=== PATIENT | female | born 1985 | race Two or more races ===

== ENCOUNTER → 2017-09-29 13:37 | Outpatient (CLI) | payer BC, SELFPAY ==
[2017-09-29 16:13] LABS: Glucose Challenge Gest 1H 50g 147 mg/dL (70-140)
[2017-09-29 16:17] LABS: Hematocrit 35.8 % (37-47); Hemoglobin 11.7 g/dl (12.0-15.0); Mean Corp Hgb Conc 32.7 g/gl (32-36); Mean Corpuscular Hgb 29.8 pg (27.0-32.0); Mean Corpuscular Volume 91.3 fL (81-99); Mean Platelet Vol. 10.2 fl (6.2-12.0); Platelet Count 234 K/mm3 (150-450); RBC Distribution Width CV 13.7 % (11.6-14.6); RBC Distribution Width SD 44.7 fl (35.1-43.9); Red Blood Count 3.92 M/mm3 (4.2-5.4); White Blood Count 9.4 K/mm3 (4.4-11.0)
[2017-09-29 16:23] LABS: Scan Indicated on CBC? Y/N NO
== END ==
PROVIDERS: Visit Provider Obstetrics & Gynecology
DX: Z34.83 Encounter for supervision of other normal pregnancy, third trimester (principal)
CPT/HCPCS: 36415; 82950; 85027; 86850

== ENCOUNTER → 2017-10-20 06:54 | Outpatient (CLI) | payer BC, SELFPAY ==
[2017-10-20 08:50] LABS: Glucose GTT-Gestation. Fasting 92 mg/dL (<105)
[2017-10-20 09:47] LABS: Glucose GTT-Gestational 1 Hr 176 mg/dL (<190)
[2017-10-20 09:51] LABS: Glucose GTT-Gestational 2 Hr 171 mg/dL (<165)
[2017-10-20 11:53] LABS: Glucose GTT-Gestational 3 Hr 103 L (<145)
== END ==
PROVIDERS: Family Provider Internal Medicine; PCP Internal Medicine; Visit Provider Obstetrics & Gynecology
DX: Z34.83 Encounter for supervision of other normal pregnancy, third trimester (principal)
CPT/HCPCS: 36415; 82951; 82952

== ENCOUNTER → 2017-11-14 | Outpatient (CLI) | payer BC, SELFPAY ==
[2017-11-14 21:57] LABS: Group B Strep DNA By PCR Negative (Negative); Internal Control PASS; Probe Check PASS; Specimen Processing Control PASS
== END | disposition home or self-care (01) ==
PROVIDERS: Visit Provider Obstetrics & Gynecology
DX: Z36.85 Encounter for antenatal screening for Streptococcus B (principal)
CPT/HCPCS: 87081; 87653

== ENCOUNTER 2017-12-24 16:50 | Inpatient (IN) | payer BC, SELFPAY ==
[2017-12-24 17:20] VITALS: BMI 34.1
[2017-12-24 18:10] LABS: Hematocrit 37.5 % (37-47); Hemoglobin 12.6 g/dl (12.0-15.0); Mean Corp Hgb Conc 33.6 g/gl (32-36); Mean Corpuscular Hgb 30.1 pg (27.0-32.0); Mean Corpuscular Volume 89.5 fL (81-99); Platelet Count 171 K/mm3 (150-450); RBC Distribution Width CV 13.5 % (11.6-14.6); RBC Distribution Width SD 43.9 fl (35.1-43.9); Red Blood Count 4.19 M/mm3 (4.2-5.4); White Blood Count 8.3 K/mm3 (4.4-11.0)
[2017-12-24 18:12] LABS: Scan Indicated on CBC? Y/N NO
[2017-12-24] MEDS: miSOPROStol 25 MCG TABLET PO (20:23)
[2017-12-24] MEDS: 0.9% Saline Lock 10 ML Syringe IV (20:24)
--- NOTE | 2017-12-25 | PLAC_PTH ---
PATIENT: AYANA MUJICA LOC: [facility] U#:[id number] AGE/SX: 32/F ROOM: WP010 RE12/24/[address]: Dr. Ambar aMi MD : [id number] BED: 1 DIS: 12/28/2017 SPEC #: [id number] RECD: 12/26/17 08:00 STATUS: NUNO CANDI #: [id number] ADAN: 12/25/17 00:[address]: Ambar Mai DEPT: SURGICAL PATHOLOGY RECD BY: Tu Huerta ENTERED: 12/26/17 08:00 SP TYPE: PLACENTA OTHR DR: MD Dr. Stevie Andres MD Tissues: Placenta, NOS Procedures: Surgery Specimen Level V HEADER OPERATION: Primary section PRE-OP DIAGNOSIS: Chorioamnionitis, maternal temp tachycardia TISSUE SUBMITTED: Placenta MICROSCOPIC DIAGNOSIS Cho placenta (547 gm): Umbilical cord ? trivascular with no inflammation. Placental membranes - acute deciduitis and chorionitis. Placental disc ? Rose-Abdirashid change, intravillous congestion and intervillous congestion. AM:kinga 12/29/17 MICROSCOPIC DESCRIPTION Slides are reviewed. GROSS DESCRIPTION SPECIMEN: PLACENTA / CLINICAL INFORMATION: A. Weight: 3.118 kg B. Gestational Age: 41 weeks C. Sex: Female PLACENTAL WEIGHT (POST FIXATION): 547 gm PLACENTAL DIMENSIONS: 20 x 15 x 3 cm PLACENTAL SHAPE: Usual ovoid PLACENTAL WEIGHT FOR GESTATIONAL AGE: Within 10-99th percentile MEMBRANES - Present A. Insertion: Marginal B. Site of rupture from edge: At edge of placental disc C. Color of membrane: Chaves-pike D. Abnormalities: None UMBILICAL CORD - Present A. Color: Chaves-pike B. Insertion: Eccentric C. Length: 35 cm D. Diameter: 1.2 cm E. Number of vessels: Three. The end is inked. F. Abnormalities: None PLACENTAL DISC - Present A. Color of surface: Chaves-pike B. surface abnormalities: None C. Maternal cotyledons: Intact with minimal tears D. Attached retro placental clot: No clot E. Cut surface: Dark red and spongy F. Lesions: None G. Separate clot: Absent SECTIONS SUBMITTED: 1. Membrane roll and umbilical cord ( end notched) 2. Placental disc, and maternal surfaces 3. Placental disc, and maternal surfaces 4. Placental disc, and maternal surfaces AM:kinga 12/28/17 TC:2 CPT: 94724
[2017-12-25] MEDS: miSOPROStol 25 MCG TABLET PO ×3 (00:01→08:09)
--- NOTE | 2017-12-25 07:48 | PCM.PN.BLA ---
Progress Note INDUCTION of labor 41 2/7 wk with unfavorable cervix. comfortable. Up to void AVSS Last dose of cytotec given po at 4 am (THIRD of SIX planned) EFM 130-140s avg variability (mod), with accels UCs q 2 1/2 to 5 mins CX: soft, closed. Difficult exam 2/2 guarding A/P: 41 2/7 wk induction of labor. Prodromal. Category I tracing. Cervix remains closed, but soft. VTX high and anticipated larger baby with sono EFW approx 9#. Pt and spouse in agreement with induction of labor. Advised re ACOG recommendations for MARGARITO vs primary C/S. OK with MARGARITO. Continue Cytotec for up to 6 doses. Regular breakfast for now. Next cytotecs at 8 am, 12:00 noon, and 4 PM .
[2017-12-25] MEDS: 0.9% Saline Lock 10 ML Syringe IV ×2 (08:09→22:15)
[2017-12-25] MEDS: Lactated Ringers 1,000 ML 50 ML IV ×4 (12:00→22:42)
[2017-12-25] MEDS: fentaNYL-bupivacaine (epidural) 100 ML BAG EPIDURAL ×2 (12:41→21:40)
--- NOTE | 2017-12-25 13:07 | PCM.PN.BLA ---
Progress Note 41 2/7 wk Induction postdates Cytotec last given at 8 am.. Cervix progressed to 3 cm. Cytotec held. Epidural placed. pt now comfortable. AVSS Category I tracing. 130-140s mod variability. Accels Irreg UCs with poor cotton picking machine operator at times. CX: 80/-2 vtx. AROM but minimal fluid. IUPC placed. thin mec in tubing A/P: 41 2/7 wk EGA induction. Continue induction . AROM lt mec: peds to attend delivery and explained all to patient and . Pitocin prn to adequate mVUs. Watch progress, descent.
--- NOTE | 2017-12-25 13:10 | PN_ITS ---
Progress Note 41 2/7 wk Induction postdates Cytotec last given at 8 am.. Cervix progressed to 3 cm. Cytotec held. Epidural placed. pt now comfortable. AVSS Category I tracing. 130-140s mod variability. Accels Irreg UCs with poor product picker at times. CX: 80/-2 vtx. AROM but minimal fluid. IUPC placed. thin mec in tubing A/P: 41 2/7 wk EGA induction. Continue induction . AROM lt mec: peds to attend delivery and explained all to patient and . Pitocin prn to adequate mVUs. Watch progress, descent.
[2017-12-25] MEDS: Oxytocin 30 units/NS 500 ml 30 UNITS/500 ML IV.SOLN IV (15:00)
--- NOTE | 2017-12-25 17:20 | PCM.PN.BLA ---
Progress Note INDUCTION of labor 41 2/7 wk LGA fetus Comfortable w/ epidural AVSS pitocin at 6 mIU/min (s/p cytotec prior) Shafer with clear yellow urine EFM 130-140s with earlies. Accels. Category I tracing with mod variability. UCs q 2-5 mins. CX: 8/80/-2 A/P: 41 2/7 wk EGA induction of labor. postdates. LGA by sono approx 9# 2 oz. Potential for CPD given EFW and maternal stature but does not meet ACOG criteria to offer primary C/S. Advised pt that once complete may labor down and then begin pushing for up to 4 hrs . Continue induction.
--- NOTE | 2017-12-25 19:40 | PCM.PN.BLA ---
Progress Note LABOR PROGRESS NOTE Induction 41 2/7 wk EGA. LGA Epidural in place. comfortable position changes and with peanut ball in place AVSS pitocin induction after cytotect. EFM 140-150s minimal variability early decels. occasional late. Overall category I tracing. EFM(no scalp electrode yet) IUPC with adequate appearing UCs. CX 8.5/-1 A/P: slow progress with only 0.5 cm in last two hours (approx) Continue labor. Potential for CPD with maternal habitus/stature and LGA fetus. continue labor for now.
--- NOTE | 2017-12-25 22:13 | PCM.PN.BLA ---
Progress Note LABOR PROGRESS, INDUCTION Feeling some pressure, but not painful. Nauseated EFM 140-150 with periods of decreased variability. Accels noted at times, variable to 90-100 less than one minute duration. Early decels with occasional late. Scalp stim noted. Complete 0 station. Shafer bulb reduced superior to VTX (called complete at approx 2130) Thick pelvic floor muscles noted, but room noted posteriorly A/P: 41 2/7 wk induction of labor postdates. LGA. Continue induction begin pushing soon. Zofran for nausea. Watch descent, tolerance of labor.
[2017-12-25] MEDS: Ondansetron 4 MG/2 ML Vial IV (22:15)
[2017-12-25] MEDS: Acetaminophen 325 MG Tablet PO (22:28)
--- NOTE | 2017-12-25 23:45 | PCM.PN.BLA ---
Progress Note LABOR PROGRESS NOTE Complete since approx 2129 and pushing for approx 1 hr of last 2 1/2 hrs. Maternal temp to 102 plus tylenol given, and persistent maternal temp noted. tachycardia. FHR in 180s , minimal variability, with intermittent lates, deep variables. Still with small accels. UCs q 2-3 Despite pushing for about 1 hr and complete for 2 1/2 hr, no further descent of vtx. Shafer with blood tinged urine A/P; 41 2/7 wk EGA induction for postdates. LGA. recommend proceed to primary C section for primary indication of nonreassuring FHR tracing persistent tachycardia with minimal variability. Lates and deep variables. remote from delivery. Pt and spouse advised of recommendation and likely follow up of baby after delivery due to dx of chorioamnionitis. Ampicillin and gent started preop / labor antibiotics. continue antibiotics postop for dx of chorioamnionitis / endometritis.
[2017-12-25] MEDS: Sodium Citrate/Citric Acid 30 ML UDC PO (23:59)
[2017-12-26] VITALS (27 sets, daily range): BP systolic 91–112; BP diastolic 53–78; PULSE 18–118; RESP 16–103; TEMP 35.4–37.3; O2SAT 97–100
--- NOTE | 2017-12-26 00:01 | PCM.DCCSEC ---
Discharge Diet: No Restrictions Discharge Activity: May not drive while taking narcotic pain medications., May Shower, May Take a Tub Bath Return to work on:: 02/12/18 May resume sexual activity in: 4-6 weeks Lifting Restrictions: 20 pounds Additional Activity Instructions:: Nothing in the vagina for 4-6 weeks. You may return to work/school in 6 weeks. Change Dressing in (Days):: 4 Remove Dressing in (days):: 4 Cleanse incision/area with: Soap & Water, Keep Dressing Clean & Dry Additional Instructions: If you experience any of the following, contact your healthcare provider. Bleeding that soaks a pad every hour for 2 hours Fever 100.4 or higher Unrelieved incision or abdominal pain Swelling, redness, discharge or bleeding from your incision Problems urinating (including inability to urinate or burning while urinating). Visual changes Severe headache Flu-like symptoms Pain or redness in one of both of your breasts Pain, warmth, tenderness or swelling in your legs, especially the calf area Frequent nausea and vomiting Symptoms of depression or anxiety If you experience any of the following, call 911 or go to the nearest Emergency Room. Chest pain Problems breathing Seizure activity Partial or complete paralysis of a body part, slurred speech, weakness or drooping of the face, or a sudden inability to walk or hold your balance Allergies/Adverse Reactions: Allergies No Known Allergies Allergy (Verified 12/24/17 17:21) Medications to take at Discharge Vits [Prenatabs FA ] 1 tablet PO DAILY 12/24/17 Docusate Sodium [Colace] 100 mg PO BID PRN PRN #30 cap 12/26/17 Naproxen 250 - 500 mg PO Q8H PRN PRN #30 tab 12/26/17 Oxycodone [Oxyir] 5 - 10 mg PO Q6H PRN PRN 4 Days #20 tablet 12/26/17 The following prescriptions were given: Oxycodone [Oxyir] 5 - 10 mg PO Q6H PRN PRN 4 Days #20 tablet PRN Reason: Mod-Severe Pain (4-10/10) Naproxen 250 - 500 mg PO Q8H PRN PRN #30 tab PRN Reason: Mild-Mod Pain (1-5/10) Docusate Sodium [Colace] 100 mg PO BID PRN PRN #30 cap PRN Reason: Constipation Follow-Up: Call to make an appointment with your doctor for an incision check in 1-2 weeks. You will also need a 6 week post- follow up appointment. Test results from this visit will be discussed in further detail at your follow-up appointment, if applicable. Please Follow Up With: Ambar Mai MD - [phone] When: Call to make an appointment for an incision check in 2 weeks. Primary Care Physician: Nancy Magana MD [Primary Care Provider] - Proposed Discharge Date: 12/30/17
--- NOTE | 2017-12-26 00:07 | DCINST_ITS ---
Discharge Diet: No Restrictions Discharge Activity: May not drive while taking narcotic pain medications., May Shower, May Take a Tub Bath Return to work on:: 02/12/18 May resume sexual activity in: 4-6 weeks Lifting Restrictions: 20 pounds Additional Activity Instructions:: Nothing in the vagina for 4-6 weeks. You may return to work/school in 6 weeks. Change Dressing in (Days):: 4 Remove Dressing in (days):: 4 Cleanse incision/area with: Soap & Water, Keep Dressing Clean & Dry Additional Instructions: If you experience any of the following, contact your healthcare provider. * Bleeding that soaks a pad every hour for 2 hours * Fever 100.4 or higher * Unrelieved incision or abdominal pain * Swelling, redness, discharge or bleeding from your incision * Problems urinating (including inability to urinate or burning while urinating) . * Visual changes * Severe headache * Flu-like symptoms * Pain or redness in one of both of your breasts * Pain, warmth, tenderness or swelling in your legs, especially the calf area * Frequent nausea and vomiting * Symptoms of depression or anxiety If you experience any of the following, call 911 or go to the nearest Emergency Room. * Chest pain * Problems breathing * Seizure activity * Partial or complete paralysis of a body part, slurred speech, weakness or drooping of the face, or a sudden inability to walk or hold your balance Allergies/Adverse Reactions: Allergies No Known Allergies Allergy (Verified 12/24/17 17:21) Medications to take at Discharge Vits [Prenatabs FA ] 1 tablet PO DAILY 12/24/17 Docusate Sodium [Colace] 100 mg PO BID PRN PRN #30 cap 12/26/17 Naproxen 250 - 500 mg PO Q8H PRN PRN #30 tab 12/26/17 Oxycodone [Oxyir] 5 - 10 mg PO Q6H PRN PRN 4 Days #20 tablet 12/26/17 The following prescriptions were given: Oxycodone [Oxyir] 5 - 10 mg PO Q6H PRN PRN 4 Days #20 tablet PRN Reason: Mod-Severe Pain (4-10) Naproxen 250 - 500 mg PO Q8H PRN PRN #30 tab PRN Reason: Mild-Mod Pain (1-5) Docusate Sodium [Colace] 100 mg PO BID PRN PRN #30 cap PRN Reason: Constipation Follow-Up: Call to make an appointment with your doctor for an incision check in 1-2 weeks. You will also need a 6 week post- follow up appointment. Test results from this visit will be discussed in further detail at your follow- up appointment, if applicable. Please Follow Up With: Ambar Mai MD - [phone] When: Call to make an appointment for an incision check in 2 weeks. Primary Care Physician: Nancy Magana MD [Primary Care Provider] - Proposed Discharge Date: 12/30/17
[2017-12-26] MEDS: Oxytocin 30 units/NS 500 ml 30 UNITS/500 ML IV.SOLN 167 UNITS IV (00:31)
[2017-12-26] MEDS: Methylergonovine 0.2 MG/ML Ampul IM (00:33)
[2017-12-26] MEDS: Lactated Ringers 1,000 ML 100 ML IV ×3 (01:10→17:05)
[2017-12-26] MEDS: Ketorolac 30 MG/ML Syringe IV ×3 (06:08→18:20)
[2017-12-26 07:12] LABS: Hematocrit 33.2 % (37-47); Mean Corp Hgb Conc 33.1 g/gl (32-36); Mean Corpuscular Hgb 29.9 pg (27.0-32.0); Mean Corpuscular Volume 90.2 fL (81-99); Mean Platelet Vol. 10.8 fl (6.2-12.0); Platelet Count 154 K/mm3 (150-450); RBC Distribution Width CV 13.5 % (11.6-14.6); RBC Distribution Width SD 44.4 fl (35.1-43.9); Red Blood Count 3.68 M/mm3 (4.2-5.4); White Blood Count 14.7 K/mm3 (4.4-11.0)
[2017-12-26 07:19] LABS: Scan Indicated on CBC? Y/N NO
[2017-12-26 07:20] LABS: Anion Gap 11 (5-15); BUN 7 mg/dL (7-18); BUN/Creat Ratio 7.8 RATIO (10-20); Chloride 107 mmol/L (98-107); Creatinine, Serum 0.89 mg/dL (0.55-1.02); EST Glomerular Filtration Rate 79 mL/min (>60); Est Glom Filt Rate - Afr Amer 95 mL/min (>60); Estimated Creatinine Clearance 69.75 ml/min; Glucose 133 mg/dL (74-106); Potassium 4.6 mmol/L (3.5-5.1); Sodium Level 139 mmol/L (136-145)
--- NOTE | 2017-12-26 08:09 | PCM.OP.BLANK ---
Operative Report Date of Procedure: 12/26/17 PROCEDURE: Primary C section. Preoperative diagnosis: 41 2/7 wk EGA induction nonreassuring heart tracing, lates deep variables chorioamnionitis -- maternal fever, tachycardia Postop diagnosis: 41 2/7 wk EGA induction nonreassuring heart tracing, lates deep variables chorioamnionitis -- maternal fever, tachycardia Anesthesia: Eliel Ling CRNA Surgeon: Ambar Mai MD Machine Cementer: SHAHAB Bauer EBL 600 cc Complications: none, incidental extension of uterine incision to R Drains: Shafer draining clear yellow Fluids: replacement LR Findings: At amniotomy, clear fluid was noted. Cho viable female in vertex presentation. Apgars 8/9, Baby weight 7# 2 oz. There were normal appearing fallopian tubes and ovaries bilaterally, and a normal appearing uterus PATH: Placenta sent to [facility] Pathology lab Narrative account: After the risks, benefits and alternatives of the procedure were reviewed with the patient, informed consent was obtained. The patient was taken to the Operating room with an IV running, an epidural catheter in place and Shafer catheter in place. She was positioned on the operating table to dorsal supine position with leftward displacement of the uterus, and prepped and draped in the usual sterile fashion. The epidural was dosed to surgical levels. Once the epidural was deemed adequate, a Pfannenstiel skin incision was created using the knife. The incision was carried down to the rectus fascia using the knife. The fascia was nicked in the midline. The fascial incision was extended bilaterally using curved Greenberg scissors. The superior aspect of the fascial incision was grasped with Cleveland clamps and tented up and the underlying rectus abdominal muscles were dissected free. In a similar manner, the inferior aspect of the facial incision was grasped with [place] clamps tented up and the underlying rectus abdominal muscles were dissected free. The rectus abdominis muscles were in the midline and the peritoneum was identified and entered by blunt dissection high in the incision. Using the undercover operator's fingertips to guide dissection and Metzenbaum scissors the peritoneal incision was extended superiorly and then inferiorly The peritoneum was stretched laterally and a bladder blade was inserted. A bladder flap was created. The uterine incision was then created using Metzenbaum scissors. The operators fingertips were used to extend the uterine incision by blunt dissection in a caudad- cephalad orientation . Minimal clear fluid was noted at amniotomy. The vertex was then delivered atraumatically through the incision and the baby was then delivered easily onto the abdomen. The OP and nares were bulb suctioned on the abdomen. The cord was clamped x two and cut. And the was handed off to the nurse awaiting delivery after briefly showing her to her parents. The baby had good grimace and a spontaneous cry. The placenta was then delivered. The uterus was exteriorized and cleared of clots and debris . The uterine incision was repaired with 1 Vicryl in a running locked fashion. A second imbricating layer was then placed, using 1 Monocryl in running nonlocked fashion. There was an extension of the uterine incision to the R upper vagina and this was oversewn. Excellent hemostasis noted. Bovie cautery was used to treat any bleeding areas. At this point the uterus was returned to the abdominal cavity. The gutters were cleared of clots and debris and the incision at the uterus was inspected. Adequate hemostasis was noted. Kacy was dusted over this layer. The peritoneal edges and rectus abdominis muscles were reapproximated in the midline with vertical mattress stitches and figure of eight stitches of 1 Vicryl . Excellent hemostasis was noted at the subfascial space. Kacy was dusted over this layer. The fascia was then closed in a running nonlocked fashion with a Stratofix suture. The Subcutaneous fatty tissue was Bovie cauterized as needed for hemostasis. Kacy was liberally dusted at this layer to prevent seroma formation. This layer was then reapproximated with a single layer of running 3-0 Vicryl to eliminate space. The skin edges were closed in a Subcuticular stitch of 4-0 Vicryl. The incision was cleansed. Cavilon, Steritapes, and a Mepilex dressing were then applied. The patient was then transferred to the recovery room bed in stable condition after tolerating the procedure well. Sponge, lap, needle and instrument counts correct times two. Medications given preop and intraoperatively included: Gentamicin given telecommunications operator to the operating room. the patient had received Ampicillin 2 gm IV also prior to surgery for diagnosis of chorioamnionitis. The patient also received Pitocin given IV after cord clamp, Toradol 30 mg IV times one, and Methergine 0.2 mg IM in R thigh as a prophylactic measure for treatment of initial uterine atony without hemorrhage. For a complete listing of medications given preop and intraoperatively, please see the anesthesia record.
--- NOTE | 2017-12-26 08:17 | OP.PCM_ITS ---
Operative Report Date of Procedure: 12/26/17 PROCEDURE: Primary C section. Preoperative diagnosis: 41 2/7 wk EGA induction nonreassuring heart tracing, lates deep variables chorioamnionitis -- maternal fever, tachycardia Postop diagnosis: 41 2/7 wk EGA induction nonreassuring heart tracing, lates deep variables chorioamnionitis -- maternal fever, tachycardia Anesthesia: Eliel Ling CRNA Surgeon: Ambar Mai MD Machine Bobbin Winder: SHAHAB Bauer EBL 600 cc Complications: none, incidental extension of uterine incision to R Drains: Shafer draining clear yellow Fluids: replacement LR Findings: At amniotomy, clear fluid was noted. Cho viable female in vertex presentation. Apgars 8/9, Baby weight 7# 2 oz. There were normal appearing fallopian tubes and ovaries bilaterally, and a normal appearing uterus PATH: Placenta sent to [facility] Pathology lab Narrative account: After the risks, benefits and alternatives of the procedure were reviewed with the patient, informed consent was obtained. The patient was taken to the Operating room with an IV running, an epidural catheter in place and Shafer catheter in place. She was positioned on the operating table to dorsal supine position with leftward displacement of the uterus, and prepped and draped in the usual sterile fashion. The epidural was dosed to surgical levels. Once the epidural was deemed adequate, a Pfannenstiel skin incision was created using the knife. The incision was carried down to the rectus fascia using the knife. The fascia was nicked in the midline. The fascial incision was extended bilaterally using curved Greenberg scissors. The superior aspect of the fascial incision was grasped with Cleveland clamps and tented up and the underlying rectus abdominal muscles were dissected free. In a similar manner, the inferior aspect of the facial incision was grasped with [place] clamps tented up and the underlying rectus abdominal muscles were dissected free. The rectus abdominis muscles were in the midline and the peritoneum was identified and entered by blunt dissection high in the incision. Using the paraffin plant sweater operator's fingertips to guide dissection and Metzenbaum scissors the peritoneal incision was extended superiorly and then inferiorly The peritoneum was stretched laterally and a bladder blade was inserted. A bladder flap was created. The uterine incision was then created using Metzenbaum scissors. The operators fingertips were used to extend the uterine incision by blunt dissection in a caudad- cephalad orientation . Minimal clear fluid was noted at amniotomy. The vertex was then delivered atraumatically through the incision and the baby was then delivered easily onto the abdomen. The OP and nares were bulb suctioned on the abdomen. The cord was clamped x two and cut. And the was handed off to the nurse awaiting delivery after briefly showing her to her parents. The baby had good grimace and a spontaneous cry. The placenta was then delivered. The uterus was exteriorized and cleared of clots and debris . The uterine incision was repaired with 1 Vicryl in a running locked fashion. A second imbricating layer was then placed, using 1 Monocryl in running nonlocked fashion. There was an extension of the uterine incision to the R upper vagina and this was oversewn. Excellent hemostasis noted. Bovie cautery was used to treat any bleeding areas. At this point the uterus was returned to the abdominal cavity. The gutters were cleared of clots and debris and the incision at the uterus was inspected. Adequate hemostasis was noted. Kacy was dusted over this layer. The peritoneal edges and rectus abdominis muscles were reapproximated in the midline with vertical mattress stitches and figure of eight stitches of 1 Vicryl . Excellent hemostasis was noted at the subfascial space. Kacy was dusted over this layer. The fascia was then closed in a running nonlocked fashion with a Stratofix suture. The Subcutaneous fatty tissue was Bovie cauterized as needed for hemostasis. Kacy was liberally dusted at this layer to prevent seroma formation. This layer was then reapproximated with a single layer of running 3-0 Vicryl to eliminate space. The skin edges were closed in a Subcuticular stitch of 4-0 Vicryl. The incision was cleansed. Cavilon, Steritapes, and a Mepilex dressing were then applied. The patient was then transferred to the recovery room bed in stable condition after tolerating the procedure well. Sponge, lap, needle and instrument counts correct times two. Medications given preop and intraoperatively included: Gentamicin given consulting solution director to the operating room. the patient had received Ampicillin 2 gm IV also prior to surgery for diagnosis of chorioamnionitis. The patient also received Pitocin given IV after cord clamp, Toradol 30 mg IV times one, and Methergine 0.2 mg IM in R thigh as a prophylactic measure for treatment of initial uterine atony without hemorrhage. For a complete listing of medications given preop and intraoperatively, please see the anesthesia record.
--- NOTE | 2017-12-26 08:28 | PCM.PN.OB ---
Subjective: POD#1 Induction 41 2/7 wk cytotec to pitocin Primary C/S for nonreassuring FHT, with category II tracing deep variables, lates, and decreased variability, tachycardia Doing well. Multiple family members in room visiting No concerns voiced. Breast feeding but no milk yet. Tolerating diet well AVSS no further fevers since last stage of labor. - Physical Exam General: Alert, Oriented x3, Cooperative, No apparent distress HEENT: Atraumatic Neck: Supple Abdomen: Soft - minimally tender consistent with postop status, approxm 1-2 cm inferior to umbilicus Skin: Incision - Mepilex CDI. No shadow drainage. Neurological: Cranial nerves II-XII grossly intact Psych/Mental Status: Normal Affect Vital Signs Temp Pulse Resp BP Pulse Ox 96.2 F L 100 19 H 95/56 L 100 12/26/17 05:25 12/26/17 06:25 12/26/17 06:25 12/26/17 05:25 12/26/17 06:25 Oxygen Delivery Method Room Air Weight: 82 kg Body Mass Index (BMI) 34.1 Intake and Output for Last 24 Hours 18 12/25/17 12/26/17 23:59 23:59 23:59 Intake Total 3842 / 3842 4796 / 4796 Output Total 5300 / 5300 1200 / 1200 Balance -1458 / -1458 3596 / 3596 Laboratory Tests Past 24 Hrs 12/26/17 12/26/17 12/26/17 03:30 06:40 06:40 WBC 14.7 H RBC 3.68 L Hgb 11.0 L Hct 33.2 L MCV 90.2 MCH 29.9 MCHC 33.1 RDW 13.5 RDW Differential 44.4 H Plt Count 154 MPV 10.8 Sodium 139 Potassium 4.6 Chloride 107 Carbon Dioxide 21.0 Anion Gap 11 BUN 7 Creatinine 0.89 Estim Creat Clear Calc 69.75 Est GFR (MDRD) Af Amer 95 Est GFR (MDRD) Non-Af 79 BUN/Creatinine Ratio 7.8 L Glucose 133 H Calcium 8.0 L Screen NEGATIVE Baby's Blood Type A POSITIVE Baby's KHALIDA NEGATIVE Medical Necessity - Tobacco Use Smoking Status: Never smoker Assessment/Plan POD#1 Induction to primary C section. chorioamnionitis. S/P ampicillin, gentamicin and dose of clindamycin Afeb since delivery and WBCs slightly high today. Uterus with minimal tenderness c/w normal postop. Will d/c IV antibiotics. Doubt endometritis given exam and vitals Hgb stable. Inc diet and activity as tolerated. D/C Shafer for voiding trial. Begin po meds. S/L IV for continued Toradol dosing x 48 hr postop Continue care.
[2017-12-26] MEDS: Prenatal Vits Tablet 1 TABLET PO (14:07)
[2017-12-26] MEDS: Bisacodyl 10 MG Suppository RECTAL (17:05)
[2017-12-27 00:15] VITALS: PULSE 95; RESP 18; TEMP 36.7; O2SAT 99
[2017-12-27] MEDS: Ketorolac 30 MG/ML Syringe IV ×5 (00:29→23:49)
[2017-12-27] MEDS: 0.9% Saline Lock 10 ML Syringe IV ×6 (00:29→23:49)
[2017-12-27 05:15] VITALS: PULSE 93; RESP 18; TEMP 36.5
--- NOTE | 2017-12-27 07:17 | PCM.PN.OB ---
Subjective: POD#2 Primary C section, nonreassuring FHT Doing well and is asking about going home today. Family in area and supportive. Breast feeding well, pain control adequate. No concerns voiced. States passing gas. Eating well, no N/V. - Physical Exam General: Alert, Oriented x3, Cooperative, No apparent distress HEENT: Atraumatic Neck: Supple Abdomen: Soft - Fundus firm NT at approx 1-2 cm inferior to umbilicus. Abdomen sl distended and tympanitic Skin: Incision - CDI mepilex dressing appears dry, no shadow drainage. Neurological: Cranial nerves II-XII grossly intact Psych/Mental Status: Normal Affect Vital Signs Temp Pulse Resp BP Pulse Ox 97.7 F L 93 18 107/64 99 12/27/17 05:15 12/27/17 05:15 12/27/17 05:15 12/26/17 20:40 12/27/17 00:15 Oxygen Delivery Method Room Air Weight: 82 kg Body Mass Index (BMI) 34.1 Intake and Output for Last 24 Hours 02/18 12/26/18 12/27/17 23:59 23:59 23:59 Intake Total 3842 / 3842 6531 / 6531 798 / 798 Output Total 5300 / 5300 2500 / 2500 1999 / 1999 Balance -1458 / -1458 4031 / 4031 -1202 / -1202 Laboratory Tests Past 24 Hrs 07/03/18 18 06:40 06:40 WBC 14.7 H RBC 3.68 L Hgb 11.0 L Hct 33.2 L MCV 90.2 MCH 29.9 MCHC 33.1 RDW 13.5 RDW Differential 44.4 H Plt Count 154 MPV 10.8 Sodium 139 Potassium 4.6 Chloride 107 Carbon Dioxide 21.0 Anion Gap 11 BUN 7 Creatinine 0.89 Estim Creat Clear Calc 69.75 Est GFR (MDRD) Af Amer 95 Est GFR (MDRD) Non-Af 79 BUN/Creatinine Ratio 7.8 L Glucose 133 H Calcium 8.0 L Medical Necessity - Tobacco Use Smoking Status: Never smoker Assessment/Plan POD#2 Induction to primary C section. chorioamnionitis. S/P ampicillin, gentamicin and dose of clindamycin Afeb since delivery Uterus with minimal tenderness c/w normal postop. Stable postop. Dischg home today per pt request. RTO in 2 wk for postop checkup, prn sooner.
[2017-12-27 08:00] VITALS: BP 118/70; PULSE 78; RESP 17; TEMP 36.7; O2SAT 99
[2017-12-27] MEDS: Prenatal Vits Tablet 1 TABLET PO (12:00)
[2017-12-27 13:03] VITALS: BP 114/73; PULSE 78; RESP 17; TEMP 36.9; O2SAT 98
--- NOTE | 2017-12-27 14:09 | PCM.DC.SUM ---
Discharge Date and Diagnosis Date of Admission: 12/24/17 - induction 41 1/7 wk Date of Discharge: 12/27/17 - s/p primary C/S for nonreassuring FHT Hospital Course and Treatment Operations: - - induction of labor. Primary C section for nonreassuring FHR Summary of Care Provided: The patient is a 32 year old female at 41 1/7 wk with unfavorable cervix presents for induction. Cytotech to AROM, pitocin induction. Progressed to complete but developed chorioamnionitis. FHR tracing Category II remote from delivery, with tachycardia, decreased variability, and intermittent late decelerations. Maternal temp to 102+. Advised C section delivery. Ampicillin and Gentamicin given preop. C section uneventful , with delivery of a blair viable female. Normal pelvic anatomy. Postoperative course uneventful with no further fevers noted. Benign exam and incision healing well. Patient requesting discharge to home on POD#2. Discharge Diet: No Restrictions Discharge Activity: May not drive while taking narcotic pain medications., May Shower, May Take a Tub Bath Return to work on:: 02/12/18 May resume sexual activity in: 4-6 weeks Additional Activity Instructions:: Nothing in the vagina for 4-6 weeks. You may return to work/school in 6 weeks. Change Dressing in (Days):: 4 Remove Dressing in (days):: 4 Cleanse incision/area with: Soap & Water, Keep Dressing Clean & Dry Home Medications: Medications to take at Discharge Vits [Prenatabs FA ] 1 tablet PO DAILY 12/24/17 Docusate Sodium [Colace] 100 mg PO BID PRN PRN #30 cap 12/26/17 Naproxen 250 - 500 mg PO Q8H PRN PRN #30 tab 12/26/17 Oxycodone [Oxyir] 5 - 10 mg PO Q6H PRN PRN 4 Days #20 tab 12/26/17 Following Prescrptions Were Given to Patient: Oxycodone [Oxyir] 5 - 10 mg PO Q6H PRN PRN 4 Days #20 tab PRN Reason: Mod-Severe Pain (4-10/10) Naproxen 250 - 500 mg PO Q8H PRN PRN #30 tab PRN Reason: Mild-Mod Pain (1-5/10) Docusate Sodium [Colace] 100 mg PO BID PRN PRN #30 cap PRN Reason: Constipation Primary Care Physician: Nancy Magana MD [Primary Care Provider] - Please Follow Up With: Ambar Mai MD - [phone] When: Call to make an appointment for an incision check in 2 weeks. Medical Necessity - Tobacco Use Smoking Status: Never smoker Meaningful Use Info Meaningful Use Diagnoses (Choose all that apply): None applicable
--- NOTE | 2017-12-27 14:14 | DS.PCM_ITS ---
Discharge Date and Diagnosis Date of Admission: 12/24/17 - induction 41 1/7 wk Date of Discharge: 12/27/17 - s/p primary C/S for nonreassuring FHT Hospital Course and Treatment Operations: - - induction of labor. Primary C section for nonreassuring FHR Summary of Care Provided: The patient is a 32 year old female at 41 1/7 wk with unfavorable cervix presents for induction. Cytotech to AROM, pitocin induction. Progressed to complete but developed chorioamnionitis. FHR tracing Category II remote from delivery, with tachycardia, decreased variability, and intermittent late decelerations. Maternal temp to 102+. Advised C section delivery. Ampicillin and Gentamicin given preop. C section uneventful , with delivery of a lbair viable female. Normal pelvic anatomy. Postoperative course uneventful with no further fevers noted. Benign exam and incision healing well. Patient requesting discharge to home on POD#2. Discharge Diet: No Restrictions Discharge Activity: May not drive while taking narcotic pain medications., May Shower, May Take a Tub Bath Return to work on:: 02/12/18 May resume sexual activity in: 4-6 weeks Additional Activity Instructions:: Nothing in the vagina for 4-6 weeks. You may return to work/school in 6 weeks. Change Dressing in (Days):: 4 Remove Dressing in (days):: 4 Cleanse incision/area with: Soap & Water, Keep Dressing Clean & Dry Home Medications: Medications to take at Discharge Vits [Prenatabs FA ] 1 tablet PO DAILY 12/24/17 Docusate Sodium [Colace] 100 mg PO BID PRN PRN #30 cap 12/26/17 Naproxen 250 - 500 mg PO Q8H PRN PRN #30 tab 12/26/17 Oxycodone [Oxyir] 5 - 10 mg PO Q6H PRN PRN 4 Days #20 tab 12/26/17 Following Prescrptions Were Given to Patient: Oxycodone [Oxyir] 5 - 10 mg PO Q6H PRN PRN 4 Days #20 tab PRN Reason: Mod-Severe Pain (4-10/10) Naproxen 250 - 500 mg PO Q8H PRN PRN #30 tab PRN Reason: Mild-Mod Pain (1-5/10) Docusate Sodium [Colace] 100 mg PO BID PRN PRN #30 cap PRN Reason: Constipation Primary Care Physician: Nancy Magana MD [Primary Care Provider] - Please Follow Up With: Ambar Mai MD - [phone] When: Call to make an appointment for an incision check in 2 weeks. Medical Necessity - Tobacco Use Smoking Status: Never smoker Meaningful Use Info Meaningful Use Diagnoses (Choose all that apply): None applicable
[2017-12-27 20:20] VITALS: BP 106/63; PULSE 97; RESP 18; TEMP 36.3; O2SAT 99
[2017-12-28 02:00] VITALS: BP 98/68; PULSE 98; RESP 18; TEMP 36.4; O2SAT 109
[2017-12-28] MEDS: Acetaminophen 500 MG Tablet 1000 MG PO (02:24)
[2017-12-28 06:33] LABS: Pathology Specimen OB SEE PATHOLOGY REPORT
--- NOTE | 2017-12-28 07:21 | PCM.PN.OB ---
Subjective: POD#3 Primary C/S after prolonged induction lf labor. Chorioamnionitis. Nonreassuring heart rate tracing. Doing well. Baby with bilirubin issue, and rechecking this today. Levels pending. Potential dischg later today. Infant nursing and doing ok with this. Pt without concerns voiced. Pain control adequate. Objective: lying in bed, semirecumbent, holding sleeping baby. - Physical Exam General: Alert, Oriented x3, Cooperative, No apparent distress HEENT: Atraumatic Neck: Supple Abdomen: Soft - Fundus firm NT at inferior to umbilicus Skin: Incision - Mepilex dressing intact. Dry. Neurological: Cranial nerves II-XII grossly intact Psych/Mental Status: Normal Affect Vital Signs Temp Pulse Resp BP Pulse Ox 97.5 F L 98 18 98/68 109 12/28/17 02:00 12/28/17 02:00 12/28/17 02:00 12/28/17 02:00 12/28/17 02:00 Oxygen Delivery Method Room Air Weight: 82 kg Body Mass Index (BMI) 34.1 Intake and Output for Last 24 Hours 07/03/18 07/04/18 18 23:59 23:59 23:59 Intake Total 6531 / 6531 798 / 798 Output Total 2500 / 2500 2500 / 2500 Balance 4031 / 4031 -1702 / -1702 Medical Necessity - Tobacco Use Smoking Status: Never smoker Assessment/Plan POD#3 Induction , to primary C section for nonreassuring heart rate tracing. chorioamnionitis. S/P ampicillin, gentamicin and dose of clindamycin Afeb since delivery Stable postop. Dischg home today if baby is released. (bilirubin levels pending). RTO in 2 wk for postop checkup, prn sooner.
[2017-12-28 08:45] VITALS: BP 105/65; PULSE 84; RESP 18; TEMP 36.7
--- NOTE | 2017-12-28 13:37 | NURSING ---
1200 and maternal bracelet numbers match; placed in car seat per parents; dc talk done pt verbalizes understanding; denies need for any further education
== END 2017-12-28 12:00 | disposition home or self-care (01) | DRG 765 ==
PROVIDERS: Obstetrics & Gynecology; Admitting Provider Obstetrics & Gynecology; Family Provider Internal Medicine; PCP Internal Medicine; Visit Provider Obstetrics & Gynecology
DX: O76 Abnormality in fetal heart rate and rhythm complicating labor and delivery (principal); O41.1230 Chorioamnionitis, third trimester, not applicable or unspecified; O34.33 Maternal care for cervical incompetence, third trimester; O48.0 Post-term pregnancy; O36.63X0 Maternal care for excessive fetal growth, third trimester, not applicable or unspecified; O21.9 Vomiting of pregnancy, unspecified; O77.0 Labor and delivery complicated by meconium in amniotic fluid; Z3A.41 41 weeks gestation of pregnancy; Z37.0 Single live birth
CPT/HCPCS: 36415; 59025; 59050; 80048; 85027; 85461; 86850; 86900; 88307; 90384; 94762; 99218; J7120; A4216; G0378; J2405; J2790

== ENCOUNTER 2017-12-29 14:35 | Outpatient (CLI) | payer BC, SELFPAY | END 2017-12-29 15:35 | disposition home or self-care (01) | LOC: WPOUT 14:55 → WP 14:58 | PROVIDERS: Family Provider Internal Medicine; PCP Internal Medicine; Visit Provider Obstetrics & Gynecology | DX: Z39.1 Encounter for care and examination of lactating mother (principal) | CPT/HCPCS: 96152 ==

== ENCOUNTER 2018-01-06 11:30 | Outpatient (CLI) | payer BC, SELFPAY | END 2018-01-06 12:00 | disposition home or self-care (01) | LOC: WPOUT 11:55 → WP 11:56 | PROVIDERS: Family Provider Internal Medicine; PCP Internal Medicine; Visit Provider Obstetrics & Gynecology | DX: Z39.1 Encounter for care and examination of lactating mother (principal) | CPT/HCPCS: 96152 ==